=== PATIENT | male | born 1980 | race Two or more races ===

== ENCOUNTER 2023-03-25 02:48 | Emergency (ER) | payer OTHER ==
[2023-03-25 02:59] VITALS: BP 116/77; PULSE 88; RESP 16; TEMP 97.9; BMI 25.0
[2023-03-25] MEDS ORDERED: LIDOCAINE 5% TOPICAL PATCH TP ONE (04:26)
[2023-03-25] MEDS ORDERED: ACETAMINOPHEN 325 MG TABLET (FP) PO ONE (04:26)
[2023-03-25] MEDS ORDERED: ACETAMINOPHEN 325 MG TABLET (FP) ONE (04:30)
[2023-03-25] MEDS ORDERED: LIDOCAINE 4% PATCH TP ONE ×2 (04:35→04:36)
[2023-03-25] MEDS ORDERED: LIDOCAINE PATCH REMOVAL MC ONE (17:00)
== END 2023-03-25 05:33 | disposition home or self-care (01) ==
LOC: JER 02:48
DX: M25.551 Pain in right hip (principal); M25.561 Pain in right knee; V43.53XA Car driver injured in collision with pick-up truck in traffic accident, initial encounter; Y92.410 Unspecified street and highway as the place of occurrence of the external cause
CPT/HCPCS: 72170-TC-FY; 73521-TC-FY; 73562-TC-RT-FY; 99284-25